=== PATIENT | male | born 1945 | race American Indian/Alaskan Native ===

== ENCOUNTER 2019-05-12 12:31 | Emergency (ER) | payer MEDICARE ==
--- NOTE | 2019-05-12 12:46 | Emergency Department Report ---
Blank Doc - Documentation Documentation: This is a 73-year-old male that presents with upper back boil. This initial assessment/diagnostic orders/clinical plan/treatment(s) is/are subject to change based on patient's health status, clinical progression and re- assessment by fellow clinical providers in the ED. Further treatment and workup at subsequent clinical providers discretion. Patient/guardians urged not to elope from the ED as their condition may be serious if not clinically assessed and managed. Initial orders include: 1- Patient sent to [facility] for further evaluation and treatment.
[2019-05-12 12:47] VITALS: BP 179/60
--- NOTE | 2019-05-12 14:32 | Emergency Department Report ---
- General Chief complaint: Skin/Abscess/Foreign Body Stated complaint: BOIL Time Seen by Provider: 05/12/19 12:45 Source: patient Mode of arrival: Ambulatory Limitations: No Limitations - History of Present Illness Initial comments: Mr. Vicente is a healthy 73-year-old male who has irritation of a cyst on his back. Cyst is has been present for over 20 years. However the cyst is now more irritated inflamed and larger than before. Mild symptoms. No fever. No direct injury. MD complaint: abscess/boil -: days(s) (worse over the last several days) Severity: mild Consistency: constant Worsens with: palpation Context: none Associated symptoms: denies other symptoms - Related Data Previous Rx's Medication Instructions Recorded Last Taken Type Sulfamethoxazole/Trimethoprim 1 each PO BID 7 Days #14 tablet 05/12/19 Unknown Rx [Bactrim DS TAB] cephALEXin [Keflex] 500 mg PO Q6HR 7 Days #28 capsule 05/12/19 Unknown Rx Allergies Allergy/AdvReac Type Severity Reaction Status Date / Time No Known Allergies Allergy Unverified 05/12/19 12:33 Abscess Boil HPI - HPI Chief Complaint: Skin/Abscess/Foreign Body Stated Complaint: BOIL Time Seen by Provider: 05/12/19 12:45 Home Medications: Previous Rx's Medication Instructions Recorded Last Taken Type Sulfamethoxazole/Trimethoprim 1 each PO BID 7 Days #14 tablet 05/12/19 Unknown Rx [Bactrim DS TAB] cephALEXin [Keflex] 500 mg PO Q6HR 7 Days #28 capsule 05/12/19 Unknown Rx Allergies/Adverse Reactions: Allergies Allergy/AdvReac Type Severity Reaction Status Date / Time No Known Allergies Allergy Unverified 05/12/19 12:33 ED Review of Systems ROS: Stated complaint: BOIL Other details as noted in HPI Constitutional: denies: fever, malaise Skin: rash, lesions ED Past Medical Hx - Past Medical History Previous Medical History?: Yes Additional medical history: VSD - Surgical History Past Surgical History?: No - Social History Smoking Status: Never Smoker Substance Use Type: None - Medications Home Medications: Home Medications Medication Instructions Recorded Confirmed Last Taken Type Sulfamethoxazole/Trimethoprim 1 each PO BID 7 Days #14 tablet 05/12/19 Unknown Rx [Bactrim DS TAB] cephALEXin [Keflex] 500 mg PO Q6HR 7 Days #28 capsule 05/12/19 Unknown Rx ED Physical Exam - General Limitations: No Limitations General appearance: alert, in no apparent distress - Head Head exam: Present: atraumatic, normocephalic - Eye Eye exam: Present: normal appearance - Neurological Exam Neurological exam: Present: alert, oriented X3 - Psychiatric Psychiatric exam: Present: normal affect, normal mood - Skin Skin exam: Present: other (2 cm cyst with fluctuance surrounding erythema and no discharge) ED Course Vital Signs 05/12/19 12:46 Temperature 97.8 F Pulse Rate 85 Respiratory 18 Rate Blood Pressure 179/60 O2 Sat by Pulse 100 Oximetry ED Medical Decision Making - Medical Decision Making Small infected sebaceous cyst of the left upper back, prescribed Bactrim and Keflex. Referred to general surgeon on-call Critical care attestation.: If time is entered above; I have spent that time in minutes in the direct care of this critically ill patient, excluding procedure time. ED Disposition Clinical Impression: Infected sebaceous cyst Disposition: DC-01 TO HOME OR SELFCARE Is pt being admited?: No Does the pt Need Aspirin: No Condition: Stable Instructions: Abscess (ED) Prescriptions: Sulfamethoxazole/Trimethoprim [Bactrim DS TAB] 1 each PO BID 7 Days #14 tablet cephALEXin [Keflex] 500 mg PO Q6HR 7 Days #28 capsule Referrals: ANTELMO ROSE MD [Staff Physician] - 3-5 Days
== END 2019-05-12 14:57 | disposition home or self-care (01) ==
LOC: ED 12:31
DX: L72.3 Sebaceous cyst (principal); Z79.899 Other long term (current) drug therapy
CPT/HCPCS: 99282

== ENCOUNTER 2019-05-23 07:31 | Day surgery (SDC) | payer MEDICARE ==
[~2019-05-23 07:31] MED LIST: ANCEF/STERILE WATER 2 GM/20 ML 2 GM/20 ML SYRINGE IV NR
--- NOTE | 2019-05-23 08:34 | Anesthesia Day of Surgery ---
Anesthesia Day of Surgery - Day of Surgery Patient Examined: Yes Patient H&P Reviewed: Yes Patient is NPO: Yes
--- NOTE | 2019-05-23 08:34 | Anesthesia Consultation ---
Anesthesia Consult and Med Hx Date of service: 05/23/19 - Airway Anesthetic Teeth Evaluation: Dentures ROM Head & Neck: Adequate Mental/Hyoid Distance: Adequate Mallampati Class: Class II Intubation Access Assessment: Good - Pulmonary Exam CTA: Yes - Cardiac Exam Cardiac Exam: RRR - Pre-Operative Health Status ASA Pre-Surgery Classification: ASA2 Proposed Anesthetic Plan: MAC - Pulmonary Hx Smoking: Yes (Former) - Cardiovascular System Hx Heart Murmur: Yes (VSD) - Central Nervous System Hx Psychiatric Problems: No - Other Systems Hx Cancer: No
[2019-05-23] MEDS ORDERED: LACTATED RINGERS 1,000 ML ONE (08:38)
[2019-05-23] MEDS ORDERED: LACTATED RINGERS 1,000 ML IV SCH (09:00)
[2019-05-23] MEDS ORDERED: XYLOCAINE MPF 2% ONE (09:09)
[2019-05-23] MEDS ORDERED: DIPRIVAN 10 MG/ML IV ONE ×2 (09:10→09:57)
[2019-05-23] MEDS ORDERED: SUBLIMAZE ONE (09:10)
[2019-05-23 09:16] LABS: BUN/Creatinine Ratio 11; Blood Urea Nitrogen 12 mg/dL (9-20); Calcium 9.2 mg/dL (8.4-10.2); Hemolysis Index 9
[2019-05-23] MEDS ORDERED: XYLOCAINE 1% 20 mL ONE (09:21)
[2019-05-23] MEDS ORDERED: MARCAINE 0.5% INFILTRATI ONE (09:21)
--- NOTE | 2019-05-23 09:22 | Operative Report ---
Operative Report Operative Report: DATE: 05/23/2019 SURGEON: ANTELMO ROSE MD PROCEDURE: INCISION AND DRAINAGE OF INFECTED SEBACEOUS CYST WITH EXCISION OF CYST WALL PRE-OP DX: BACK ABSCESS POST-OP DX: INFECTED SEBACEOUS CYST INDICATION: 73 YEAR OLD MALE WHO PRESENTED TO THE OFFICE AFTER A REFERRAL FROM THE ED FOR EVALUATION OF BACK ABSCESS/MASS. HE HAS HAD IT FOR 20 YEARS AND IT RECENTLY BECAME INFECTED. IT WAS DECIDED AT THAT TIME TO SCHEDULE HIM FOR INCISION AND DRAINAGE OF THE ABSCESS AND POSSIBLE CYST EXCISION. HE CONSENTED. DETAILS: PT WAS BROUGHT INTO OR SUITE AND LAID IN RIGHT LATERAL DECUBITUS POSITION. MAC ANESTHESIA WAS INDUCED. ONCE THE PATIENT WAS COMFORTABLE, HIS BACK WAS PREPPED AND DRAPED IN STERILE FASHION. LOCAL ANESTHESIA (50/50 LIDOCAINE/MARCAINE W/EPI) WAS USED TO ANESTHETIZE THE AREA. A 15 BLADE SCALPEL WAS USED TO MAKE AN INCISION OVER THE CENTER OF THE FLUCTUANT MASS. THERE WAS NOTED TO BE AN IMMEDIATE EFFLUX OF TURBID CHUNKY MATERIAL CONSISTENT WITH A SEBACEOUS CYST. A CULTURE SWAB WAS TAKEN. BENEATH THE SKIN WAS A CAVITY FILLED WITH A MIXTURE OF BLOOD AND TURBID FLUID. THE CYST WAS WAS NOTED AT THE LEVEL OF THE DERMIS AND IT WAS EXCISED. THE CAVITY WAS IRRIGATED AND SURGICEL FLUFF GAUZE WAS PLACED AT THE CAVITY BED FOR HEMOSTASIS. PRESSURE WAS APPLIED. ONCE COMFORTABLE, A SINGLE 2-O NYLON WAS USED TO APPROXIMATE THE SKIN EDGES AND 1/4 INCH IODOFORM GAUZE WAS USED TO PACK THE WOUND. THIS WAS COVERED WITH A STERILE DRESSING. PT WAS AWOKEN AND TAKEN TO RECOVERY IN STABLE CONDITION. SPECIMEN: WOUND CULTURE EBL: 20ML ANESTHESIA: MAC COMPLICATIONS: NONE IMMEDIATE FINDINGS: INFECTED SEBACEOUS CYST , CYST CAVITY MEASURED 4X5 CM
--- NOTE | 2019-05-23 09:24 | Discharge Summary ---
Providers - Providers Date of discharge: 05/23/19 Attending physician: ANTELMO ROSE MD Primary care physician: JULITA BASSETT MD Hospitalization Reason for admission: INCISION AND DRAINAGE OF BACK MASS/ABSCESS Condition: Good Procedures: INCISION AND DRAINAGE OF BACK MASS/ABSCESS Hospital course: PT HAD AN UNEVENTFUL INCISION AND DRAINAGE OF BACK MASS, WAS RECOVERED AND DISCHARGED HOME Disposition: DC-01 TO HOME OR SELFCARE Core Measure Documentation - Palliative Care Palliative Care/ Comfort Measures: Not Applicable - Core Measures Any of the following diagnoses?: none Exam - Physical Exam Narrative exam: UNCHANGED FROM HISTORY AND PHYSICAL - Constitutional Vitals: Temp Pulse Resp BP Pulse Ox 97.8 F 92 H 24 177/73 99 05/23/19 08:30 05/23/19 08:30 05/23/19 08:30 05/23/19 08:30 05/23/19 08:30 Plan Activity: other (NO LIFTING MORE THAN 20LBS) Weight Bearing Status: Full Weight Bearing Diet: regular Wound: other (REMOVE AND CHANGE PACKING ON MONDAY. RETURN TO OFFICE ON MONDAY FOR FOLLOW UP AND WOUND CHECK. ) Follow up with: JULITA BASSETT MD [Primary Care Provider] - 7 Days
[2019-05-23] MEDS ORDERED: MARCAINE-EPI 0.5%-1:200,000 INFILTRATI ONE ×2 (09:37→09:58)
[2019-05-23] MEDS ORDERED: XYLOCAINE 1% 20 mL INFILTRATI ONE (09:59)
[2019-05-23] MEDS ORDERED: NACL 0.9% IR ONE (10:01)
[2019-05-23] MEDS ORDERED: PERCOCET 5/325 PO ONE (10:42)
[2019-05-23] MEDS ORDERED: PERCOCET 5/325 ONE (10:44)
[2019-05-23 11:20] VITALS: BP 161/65
--- NOTE | 2019-05-23 15:45 | Post Anesthesia Evaluation ---
- Post Anesthesia Evaluation Patient Participated: Yes Airway Patent: Yes Stable Respiratory Function: Yes Nausea/Vomiting: No Temp > 96.8F: Yes Pain Manageable: Yes Adequeate Hydration: Yes Anesthesia Complications: No Block Receding Appropriately: Not Applicable Patient on Ventilator: No
== END 2019-05-23 11:23 | disposition home or self-care (01) ==
LOC: OR 07:31
PROVIDERS: ATTEND Surgery
DX: L72.3 Sebaceous cyst (principal); L02.212 Cutaneous abscess of back [any part, except buttock and flank]; Z87.891 Personal history of nicotine dependence; Z79.899 Other long term (current) drug therapy
CPT/HCPCS: 11400; 80048; 82803; 87075; 87116; J0690; J2704; J3010; J7120

== ENCOUNTER 2019-05-26 08:52 | Emergency (ER) | payer MEDICARE ==
[2019-05-26 09:01] VITALS: BP 165/75
--- NOTE | 2019-05-26 09:50 | Emergency Department Report ---
- General Chief Complaint: Laceration/Recheck/Suture Stated Complaint: BLEEDING POST SURGERY Time Seen by Provider: 05/26/19 09:15 Source: patient Mode of arrival: Ambulatory Limitations: No Limitations - History of Present Illness Initial Comments: Patient is a 73-year-old -Citizen Of [place] male who is presenting for wound recheck. Patient's 3 days ago had a sebaceous cyst that it become infected incised and drained. Iodoform gauze was placed within the wound. One stitch is present. Patient states that his dressings are bloody and he was concerned that something was worsening. Patient states his pain is tolerable. States is more of itchy discomfort. Patient denies any fevers chills nausea vomiting at this time. - Related Data Previous Rx's Medication Instructions Recorded Last Taken Type oxyCODONE /ACETAMINOPHEN [Percocet 1 tab PO Q4HR PRN 7 Days #15 tab NS 05/23/19 Unknown Rx 5/325] DOXYCYCLINE Hyclate [Vibramycin 100 mg PO Q12HR #14 capsule 05/26/19 Unknown Rx CAP] Allergies Allergy/AdvReac Type Severity Reaction Status Date / Time No Known Allergies Allergy Unverified 05/21/19 17:56 ED Review of Systems ROS: Stated complaint: BLEEDING POST SURGERY Other details as noted in HPI Comment: All other systems reviewed and negative ED Past Medical Hx - Past Medical History Hx Headaches / Migraines: Yes Additional medical history: VSD - Surgical History Additional Surgical History: cyst removal - Social History Smoking Status: Former Smoker Substance Use Type: None - Medications Home Medications: Home Medications Medication Instructions Recorded Confirmed Last Taken Type oxyCODONE /ACETAMINOPHEN [Percocet 1 tab PO Q4HR PRN 7 Days #15 tab NS 05/23/19 Unknown Rx 5/325] DOXYCYCLINE Hyclate [Vibramycin 100 mg PO Q12HR #14 capsule 05/26/19 Unknown Rx CAP] ED Physical Exam - General Limitations: No Limitations General appearance: alert, in no apparent distress - Head Head exam: Present: atraumatic, normocephalic - ENT ENT exam: Present: mucous membranes moist - Neck Neck exam: Present: normal inspection - Respiratory Respiratory exam: Absent: respiratory distress - Skin Skin exam: Present: warm, dry, intact, normal color, other (the patient's left upper back he has a wound present that has iodoform gauze coming from it. Patient's dressing was filled with old blood). Absent: rash ED Course Vital Signs 05/26/19 08:56 Temperature 98.1 F Pulse Rate 78 Respiratory 20 Rate Blood Pressure 165/75 O2 Sat by Pulse 100 Oximetry ED Medical Decision Making - Medical Decision Making Patient's packing was removed. She seemed to be some small amount of old clotted blood within the wound. There is a slight odor. The patient likely had a hematoma that bled but has currently stopped. The skin surrounding the wound does have some mild induration without significant warmth. Early secondary wound infection is possible. Patient is no longer on antibiotics E be restarted on doxycycline. Patient discharged home after having his wound redressed. Critical care attestation.: If time is entered above; I have spent that time in minutes in the direct care of this critically ill patient, excluding procedure time. ED Disposition Clinical Impression: Infected sebaceous cyst, Encounter for wound re-check, Postoperative wound hematoma Disposition: DC-01 TO HOME OR SELFCARE Is pt being admited?: No Does the pt Need Aspirin: No Condition: Stable Additional Instructions: Follow-up with Dr. Lamb tomorrow as scheduled Time of Disposition: 09:51
== END 2019-05-26 09:58 | disposition home or self-care (01) ==
LOC: ED 08:52
DX: L72.3 Sebaceous cyst (principal); L76.32 Postprocedural hematoma of skin and subcutaneous tissue following other procedure; G43.909 Migraine, unspecified, not intractable, without status migrainosus; Z87.891 Personal history of nicotine dependence
CPT/HCPCS: 99282

== ENCOUNTER 2019-05-29 10:12 | Outpatient (CLI) | payer MEDICARE ==
[2019-05-29] MEDS ORDERED: XYLOCAINE TOPICAL 4% TP ONE (11:00)
== END 2019-05-29 10:13 | disposition home or self-care (01) ==
LOC: WOUND 10:12
PROVIDERS: ATTEND Surgery
DX: T81.89XA Other complications of procedures, not elsewhere classified, initial encounter (principal); L98.422 Non-pressure chronic ulcer of back with fat layer exposed; G43.909 Migraine, unspecified, not intractable, without status migrainosus; Q21.0 Ventricular septal defect; Z87.891 Personal history of nicotine dependence; Y83.8 Other surgical procedures as the cause of abnormal reaction of the patient, or of later complication, without mention of misadventure at the time of the procedure; Y92.89 Other specified places as the place of occurrence of the external cause
CPT/HCPCS: 11042; G0463; 99214

== ENCOUNTER 2019-06-05 10:21 | Outpatient (CLI) | payer MEDICARE | END 2019-06-05 10:22 | disposition home or self-care (01) | LOC: WOUND 10:21 | PROVIDERS: ATTEND Surgery | DX: L98.422 Non-pressure chronic ulcer of back with fat layer exposed (principal); G43.909 Migraine, unspecified, not intractable, without status migrainosus; Q21.0 Ventricular septal defect; Z87.891 Personal history of nicotine dependence ==